=== PATIENT | male | born 1985 | race Caucasian/White ===

== ENCOUNTER 2019-09-07 09:38 | Emergency (ER) | payer SELFPAY ==
[~2019-09-07] VITALS: Ht 182.9 cm; Wt 118.5 kg
[2019-09-07 09:49] VITALS: BP 117/77
[2019-09-07] MEDS ORDERED: CENTRUM MEN'S PO (09:55)
[2019-09-07] MEDS ORDERED: NORCO 325 MG-51 TAB PO ×2 (10:21→10:27)
[2019-09-07] MEDS ORDERED: FLAGYL500 MG PO (10:21)
[2019-09-07] MEDS ORDERED: CIPRO 500MG TA500 MG PO (10:21)
[2019-09-07] MEDS ORDERED: PHENERGAN 25 TA25 MG PO (10:21)
[2019-09-07 10:45] VITALS: PULSE 79; TEMP 97.9
== END 2019-09-07 10:44 | disposition home or self-care (01) ==
LOC: COL.ER 09:38
DX: K57.92 Diverticulitis of intestine, part unspecified, without perforation or abscess without bleeding (principal)